=== PATIENT | male | born 1980 | race Caucasian/White ===

== ENCOUNTER 2021-02-24 11:48 | Emergency (ER) | payer BC, OTHER ==
[2021-02-24 12:07] VITALS: BP 132/81; PULSE 72; TEMP 97.9; BMI 23.6
[2021-02-24] MEDS ORDERED: TETANUS AND DIPHTHERIA TOXOID 0.5 ML DISP.SYRIN IM ONE (12:24)
[2021-02-24] MEDS ORDERED: DIPHTH,PERTUSS(ACELL),TET 0.5 ML DISP.SYRIN IM ONE (12:37)
== END 2021-02-24 12:41 | disposition home or self-care (01) ==
LOC: JERFT 11:48 → JER 11:48 → JERFT 12:41
PROC: 3E0234Z Introduction of Serum, Toxoid and Vaccine into Muscle, Percutaneous Approach (ICD-10-PCS; principal; 2021-02-24)
DX: S61.012A Laceration without foreign body of left thumb without damage to nail, initial encounter (principal)
CPT/HCPCS: 99284-25